=== PATIENT | male | born 1990 | race Caucasian/White ===

== ENCOUNTER 2019-02-26 10:54 | Emergency (ER) | payer MEDICAID ==
[~2019-02-26] VITALS: Ht 162.6 cm; Wt 75.0 kg
[2019-02-26] MEDS ORDERED: MAGNESIUM/ALUMINUM HYDROXIDE/SIMETHICONE 30ML UDC PO STA (11:26)
[2019-02-26] MEDS ORDERED: METOCLOPRAMIDE HCL 10MG/2ML VIAL IV STA (11:26)
[2019-02-26] MEDS ORDERED: PANTOPRAZOLE SODIUM 40 MG/VIAL IV STA (11:26)
[2019-02-26] MEDS ORDERED: SODIUM CHLORIDE 0.9% 1,000 ML IV ONE (11:26)
[2019-02-26 11:58] LABS: BASOPHILS % 0.5 % (0.0-2.0); EOSINOPHILS % 0.5 % (0.0-5.0); HEMATOCRIT. 49.5 % (42.0-52.0); HEMOGLOBIN. 17.3 g/dL (14.0-18.0); LYMPHOCYTES % 20.2 % (20.0-50.0); MEAN CORPUSCULAR HEMOGLOBIN 29.3 pg (28.0-32.0); MEAN CORPUSCULAR VOLUME 84.1 fL (80.0-94.0); MEAN PLATELET VOLUME 9.3 fl (7.4-10.4); MONOCYTES % 6.1 % (2.0-8.0); NEUTROPHILS % 72.7 % (40.0-76.0); PLATELET 195 x1000/uL (130-400); RED BLOOD CELL COUNT 5.88 mill/uL (4.7-6.1); RED CELL DISTRIBUTION WIDTH 12.6 % (11.6-14.6)
[2019-02-26 12:10] LABS: CHLORIDE 107 mEq/L (98-107)
[2019-02-26 15:00] VITALS: BP 130/70
== END 2019-02-26 14:59 | disposition home or self-care (01) ==
LOC: ER 11:04
DX: R04.2 Hemoptysis (principal); R07.89 Other chest pain; F43.9 Reaction to severe stress, unspecified
CPT/HCPCS: 36415; 71045; 80053; 83690; 84484; 85025; 85610; 86850; 86900; 86901; 93005; 96374; 96375; 99284; C9113; J2765; J7030

== ENCOUNTER 2019-11-12 22:01 | Emergency (ER) | payer MEDICAID ==
[~2019-11-12] VITALS: Ht 162.6 cm; Wt 81.0 kg
[2019-11-12 22:09] VITALS: BP 128/75
== END 2019-11-12 23:00 | disposition left against medical advice (07) ==
LOC: ER 22:43
DX: R04.0 Epistaxis (principal); Z53.21 Procedure and treatment not carried out due to patient leaving prior to being seen by health care provider